=== PATIENT | female | born 1970 | race Caucasian/White ===

== ENCOUNTER 2020-12-04 13:03 | Observation (INO) | payer BC ==
[2020-12-04 14:39] LABS: #Eosinphils 0.1 thou/uL (0.0-0.7); #Lymphocytes 1.6 thou/uL (1.20-3.40); #Monocytes 0.2 thou/uL (0.11-0.59); #Neutrophils 2.3 thou/uL (1.40-6.50); %Basophils 0.5 % (0.0-1.0); %Eosinophils 1.7 % (0.0-10.0); %Lymphocytes 38.2 % (21.0-51.0); %Monocytes 5.5 % (0.0-10.0); %Neutrophils 54.1 % (42.0-75.0); Mean Corpuscular HGB CONC 33.8 g/dL (32.0-36.0); Mean Corpuscular Hemoglobin 30.7 pg (27.0-31.0); Mean Corpuscular Volume 90.9 fL (78.0-98.0); Mean Platelet Volume 7.8 fL (7.4-10.4); Platelet Count 228 thou/uL (130-400); RBC Distribution Width 10.4 % (11.5-14.5); Red Blood Cell (RBC) Count 4.25 mill/uL (4.20-5.40); White Blood Cell (WBC) Count 4.2 thou/uL (4.8-10.8)
[2020-12-04 14:47] LABS: Bilirubin Negative (Negative); Blood, Urine Negative (Negative); Clarity Clear (Clear); Glucose, Urine (Dipstick) Normal (Negative); Ketone, Urine Negative (Negative); Leukocyte Negative Leu/uL (Negative); Nitrite Negative (Negative); Protein, Urine (Dipstick) Negative (Neg-Trace); Specific Gravity, Urine 1.008 (1.002-1.036); Urobilinogen Normal mg/dL (Less than 2); pH, Urine 6.5 (5.0-9.0)
[2020-12-04 15:01] LABS: ALT (SGPT) 18 U/L (8-55); AST (SGOT) 18 U/L (5-34); Albumin 4.2 g/dL (3.5-5.0); Alkaline Phosphatase 58 U/L (40-110); Anion Gap 13 mmol/L (10-20); BUN (Urea Nitrogen) 15 mg/dL (9.8-20.1); Bilirubin, Total 0.3 mg/dL (0.2-1.2); Calc. Creatinine Clearance 0 mL/min (70-130); Calcium 8.7 mg/dL (7.8-10.44); Carbon Dioxide 25 mmol/L (22-29); Chloride 107 mmol/L (98-107); Globulin 2.6 g/dL (2.4-3.5); Glucose 135 mg/dL (70-105); Potassium 4.8 mmol/L (3.5-5.1); Protein, Total 6.8 g/dL (6.0-8.3); Sodium 140 mmol/L (136-145)
[2020-12-04] MEDS ORDERED: Aspirin 325 MG TAB ONE (16:02)
[2020-12-04] MEDS ORDERED: Sodium Chloride 0.9% 1,000 ML IV SCH (18:15)
[2020-12-04] MEDS ORDERED: Acetaminophen 325 MG TAB PO PRN (18:15)
[2020-12-04] MEDS ORDERED: Ondansetron ODT 4 MG TAB SL PRN (18:15)
[2020-12-04] MEDS ORDERED: Ondansetron PF 4 MG/2 ML Vial IVP PRN (18:15)
[2020-12-04 18:24] VITALS: BMI 22.8
[2020-12-04] MEDS ORDERED: Melatonin 3 MG TAB PO PRN (18:40)
[2020-12-04] MEDS ORDERED: hydrALAZINE 20 MG/ML VIAL SLOW IVP PRN (18:40)
[2020-12-04] MEDS ORDERED: diphenhydrAMINE 25 MG CAP PO PRN (18:40)
[2020-12-04] MEDS ORDERED: Labetalol HCl 100 MG/20 ML VIAL SLOW IVP PRN (18:40)
[2020-12-04] MEDS ORDERED: HumaLOG 300 UNITS/3 ML VIAL SC PRN ×2 (18:40)
[2020-12-04] MEDS ORDERED: Dextrose 50% Abboject 50 ML SYRINGE SLOW IVP PRN (18:40)
[2020-12-04] MEDS ORDERED: Dextrose 5% in Water 1,000 ML IV PRN (18:40)
[2020-12-05 05:44] LABS: Band 3 % (5-11); Eosinophils 3 % (0-10); Hemoglobin 12.5 g/dL (12.0-16.0); Lymphocytes 52 % (21-51); MDiff Complete? YES; Mean Corpuscular HGB CONC 33.4 g/dL (32.0-36.0); Mean Corpuscular Volume 89.9 fL (78.0-98.0); Mean Platelet Volume 7.4 fL (7.4-10.4); Monocytes 1 % (0-10); Neutrophil 39 % (42-75); Platelet Count 217 thou/uL (130-400); Platelet Morphology Comment Appears Adequate; RBC Distribution Width 10.5 % (11.5-14.5); RBC Morphology Normal; Reactive Lymphocytes 2 % (0-10); Red Blood Cell (RBC) Count 4.15 mill/uL (4.20-5.40)
[2020-12-05 05:45] LABS: Anion Gap 12 mmol/L (10-20); BUN (Urea Nitrogen) 12 mg/dL (9.8-20.1); Calc. Creatinine Clearance 101 mL/min (70-130); Carbon Dioxide 24 mmol/L (22-29); Chloride 107 mmol/L (98-107); Cholesterol 130 mg/dl (< 200 Desired); Glucose 80 mg/dL (70-105); HDL Cholesterol 64 mg/dL (>60 Neg Risk); LDL Cholesterol, Calculated 56 mg/dL; Potassium 3.9 mmol/L (3.5-5.1); Sodium 139 mmol/L (136-145); Triglycerides 52 mg/dL (Less than 150)
[2020-12-05 08:41] LABS: SARS-CoV-2 PCR by NAA Not Detected (NotDetected)
[2020-12-05] MEDS ORDERED: Aspirin 81 mg Enteric Coated Tablet PO SCH (09:00)
[2020-12-05 10:46] LABS: PTT 32.9 sec (22.9-36.1); Prothrombin Time 13.5 sec (12.0-14.7)
[2020-12-05 10:47] LABS: D-Dimer Test 0.51 *mcg/mL (0.27-0.43)
[2020-12-05 16:01] VITALS: BP 114/74; TEMP 97.9
[2020-12-05 16:27] LABS: Factor VIII Test 183.1 % ACTIVE (56-157)
[2020-12-05 17:29] LABS: Protein C Activity 97 % (78-152)
[2020-12-05] MEDS ORDERED: Atorvastatin Calcium 10 MG TAB PO SCH (21:00)
[2020-12-08 13:46] LABS: Cardiolipin IgA Ab 5.5 APL-U/mL (<14 Negative); Cardiolipin IgG Ab 2.3 GPL-U/mL (<10 Negative); EliA APS New Method **** NEW METHOD ****
[2020-12-08 14:46] LABS: HEX PHOS LA Tube 2 49.9 SEC; Hexagonal Phospholipid Neut 5.1 SEC (0-8.0)
[2020-12-18 19:36] LABS: Activated Protein C Resistance 2.2 ratio (.)
== END 2020-12-05 17:59 | disposition home or self-care (01) ==
LOC: ERS 13:03 → 2SE 16:05
PROVIDERS: ADMIT Internal Medicine; ATTEND Internal Medicine
DX: R20.0 Anesthesia of skin (principal); E13.8 Other specified diabetes mellitus with unspecified complications; E78.00 Pure hypercholesterolemia, unspecified; M50.220 Other cervical disc displacement, mid-cervical region, unspecified level; M48.02 Spinal stenosis, cervical region; Z79.899 Other long term (current) drug therapy; Z20.822 Contact with and (suspected) exposure to COVID-19
CPT/HCPCS: 36415; 36416; 70450; 70551; 71045; 72141; 72148; 80048; 80053; 80061; 81003; 83090; 83880; 84484; 85025; 85240; 85300; 85303; 85305; 85307; 85379; 85598; 85610; 85730; 86147; 87086; 87635; 93005; 93306; 93880; G0378; U0003; U0005

== ENCOUNTER 2021-07-24 11:08 | Outpatient (CLI) | payer BC | END 2021-07-24 11:09 | disposition home or self-care (01) | PROVIDERS: ATTEND Neurological Surgery | DX: R13.10 Dysphagia, unspecified (principal) | CPT/HCPCS: 74230 ==

== ENCOUNTER 2025-05-14 12:04 | Outpatient (CLI) | payer BC | END 2025-05-14 12:05 | disposition home or self-care (01) | LOC: BICMAMMO 12:04 | PROVIDERS: ATTEND Obstetrics & Gynecology | DX: M81.0 Age-related osteoporosis without current pathological fracture (principal); M85.89 Other specified disorders of bone density and structure, multiple sites | CPT/HCPCS: 77080 ==